=== PATIENT | male | born 1940 | race Caucasian/White ===

== ENCOUNTER 2016-09-17 12:34 | Emergency (ER) | payer MEDICARE ==
[~2016-09-17] VITALS: Ht 180.3 cm; Wt 119.0 kg
[~2016-09-17 12:34] MED LIST: AMLODIPINE5 MG PO; ANTIVERT PO; ASPIRIN EC81 MG PO; BL FLAX SEED1000 MG PO; ENTRESTO 24-261 TAB PO; FISH OIL1000 MG PO; GNP POTASSIUM99 MG PO; K-TAB20 MEQ PO; LASIX 40 MG40 MG/TAB PO; LEVAQUIN750 MG PO; LOSARTAN POTASS50 MG PO; METOLAZONE2.5 MG PO; PROAIR HFA IN; SIMVASTATIN10 MG PO; SPIRONOLACTONE50 MG PO; ZOFRAN ODT4 MG PO
[2016-09-17] MEDS ORDERED: ENTRESTO 49-511 TAB PO (13:00)
[2016-09-17] MEDS ORDERED: ISOSORB MONO30 MG PO (13:01)
[2016-09-17] MEDS ORDERED: VITAMIN B-12500 MCG PO (13:03)
[2016-09-17] MEDS ORDERED: BUMETANIDE1 MG PO (13:04)
[2016-09-17 13:59] LABS: HEMOGLOBIN 14.4 g/dl (14.0-18.0); IMMATURE GRANULOCYTES 0.3 % (0.0-1.0); MEAN CELL VOLUME 95.6 fL CALC (80.0-100.0); MEAN CORPUSCULAR HGB 33.6 pG CALC (26.0-32.0); MEAN CORPUSCULAR HGB CONC 35.1 g/L CALC (32.0-36.0); NEUT# 7.13 thou/uL (1.82-7.42); RED BLOOD COUNT 4.29 mill/uL (4.70-6.10); RED CELL DISTRI WIDTH 12.6 % (11.5-15.5)
[2016-09-17 14:09] LABS: ALBUMIN 4.4 g/dL (3.2-5.0); ALKALINE PHOSPHATASE 93 u/l (38-126); ANION GAP 18 (6-22 (CALC)); BUN 18 mg/dL (8-23); BUN/CREATININE RATIO 16 (12-20 (CALC)); CALCIUM 9.3 mg/dL (8.4-10.2); CARBON DIOXIDE 27 mmol/l (22-30); CHLORIDE 98 mmol/l (95-108); CREATININE 1.1 mg/dL (0.7-1.3); GFR > 60 ML/MIN (>=60 (CALC)); GFR FOR AFR.AMER. > 60 ML/MIN (>=60 (CALC)); GLUCOSE 113 mg/dL (82-115); POTASSIUM 3.8 mmol/l (3.5-5.1); SGOT/AST 19 u/l (19-48); SGPT/ALT 28 u/l (11-66); SODIUM 139 mmol/l (137-146)
[2016-09-17] MEDS ORDERED: INDOCIN25 MG PO (16:07)
[2016-09-17 16:13] VITALS: BP 138/71
== END 2016-09-17 16:23 | disposition home or self-care (01) ==
LOC: ED 12:34
PROVIDERS: Emergency Medicine
DX: M10.072 Idiopathic gout, left ankle and foot (principal); M77.32 Calcaneal spur, left foot; R22.42 Localized swelling, mass and lump, left lower limb; M79.605 Pain in left leg; R50.9 Fever, unspecified

== ENCOUNTER 2017-05-27 18:09 | Emergency (ER) | payer MEDICARE ==
[~2017-05-27] VITALS: Ht 180.3 cm; Wt 117.0 kg
[~2017-05-27 18:09] MED LIST changes: +BUMETANIDE1 MG PO; +ENTRESTO 49-511 TAB PO; +INDOCIN25 MG PO; +ISOSORB MONO30 MG PO; +VITAMIN B-12500 MCG PO
[2017-05-27] MEDS ORDERED: ALLOPURINOL100 MG PO (18:33)
[2017-05-27] MEDS ORDERED: FAMOTIDINE20 M1 PO (18:33)
[2017-05-27] MEDS ORDERED: FLORASTOR250 M1 PO (18:34)
[2017-05-27 19:12] LABS: HEMATOCRIT 41.7 % (39.0-50.0); HEMOGLOBIN 14.1 g/dl (14.0-18.0); IMMATURE GRANULOCYTES 0.3 % (0.0-1.0); MEAN CELL VOLUME 99.3 fL CALC (80.0-100.0); MEAN CORPUSCULAR HGB 33.6 pG CALC (26.0-32.0); MEAN CORPUSCULAR HGB CONC 33.8 g/L CALC (32.0-36.0); NEUT# 5.92 thou/uL (1.82-7.42); RED BLOOD COUNT 4.2 mill/uL (4.70-6.10); RED CELL DISTRI WIDTH 12.8 % (11.5-15.5)
[2017-05-27 19:36] LABS: ALBUMIN 4.7 g/dL (3.2-5.0); BILIRUBIN, TOTAL 0.8 mg/dL (0.0-1.4); CALCIUM 9.8 mg/dL (8.4-10.2); CREATININE 1.5 mg/dL (0.7-1.3); POTASSIUM 4.4 mmol/l (3.5-5.1); TOTAL PROTEIN 7.1 g/dL (6.3-8.2)
[2017-05-27] MEDS ORDERED: PERCOCET 5/325M1 TAB PO (20:47)
[2017-05-27 21:00] VITALS: BP 148/73
== END 2017-05-27 21:20 | disposition home or self-care (01) ==
LOC: ED 18:09
PROVIDERS: Emergency Medicine
DX: M1A.9XX0 Chronic gout, unspecified, without tophus (tophi) (principal); M25.572 Pain in left ankle and joints of left foot

== ENCOUNTER 2017-10-06 21:13 | Emergency (ER) | payer MEDICARE ==
[~2017-10-06] VITALS: Ht 180.3 cm; Wt 111.2 kg
[~2017-10-06 21:13] MED LIST changes: +ALLOPURINOL100 MG PO; +FAMOTIDINE20 M1 PO; +FLORASTOR250 M1 PO; +PERCOCET 5/325M1 TAB PO
[2017-10-06 22:18] LABS: HEMATOCRIT 40.5 % (39.0-50.0); HEMOGLOBIN 13.9 g/dl (14.0-18.0); IMMATURE GRANULOCYTES 0.5 % (0.0-1.0); MEAN CELL VOLUME 98.1 fL CALC (80.0-100.0); MEAN CORPUSCULAR HGB 33.7 pG CALC (26.0-32.0); MEAN CORPUSCULAR HGB CONC 34.3 g/L CALC (32.0-36.0); NEUT# 5.97 thou/uL (1.82-7.42); RED BLOOD COUNT 4.13 mill/uL (4.70-6.10); RED CELL DISTRI WIDTH 13.2 % (11.5-15.5)
[2017-10-06 22:30] LABS: ANION GAP 20 (6-22 (CALC)); BUN 16 mg/dL (8-23); BUN/CREATININE RATIO 13 (12-20 (CALC)); CARBON DIOXIDE 23 mmol/l (22-30); CHLORIDE 102 mmol/l (95-108); CREATININE 1.2 mg/dL (0.7-1.3); GFR 59 ML/MIN (>=60 (CALC)); GFR FOR AFR.AMER. > 60 ML/MIN (>=60 (CALC)); POTASSIUM 4.1 mmol/l (3.5-5.1); SODIUM 141 mmol/l (137-146)
[2017-10-06] MEDS ORDERED: BACTRIM DS1 TAB PO (22:34)
[2017-10-06] MEDS ORDERED: MITIGARE0.6 MG PO (23:25)
[2017-10-06] MEDS ORDERED: PREDNISONE10 MG PO (23:25)
[2017-10-06 23:51] VITALS: BP 120/64
== END 2017-10-07 00:14 | disposition home or self-care (01) ==
LOC: ED 21:13
PROVIDERS: Family Medicine
DX: M10.9 Gout, unspecified (principal); M25.572 Pain in left ankle and joints of left foot; M25.571 Pain in right ankle and joints of right foot; M25.474 Effusion, right foot; R50.9 Fever, unspecified

== ENCOUNTER 2023-12-06 01:00 | Inpatient (IN) | payer MEDICARE ==
[~2023-12-06] VITALS: Ht 180.3 cm; Wt 125.4 kg
[2023-12-06] VITALS (22 sets, daily range): BP systolic 75–114; BP diastolic 41–64
[~2023-12-06 01:00] MED LIST changes: +ASPIRIN325 MG PO; +BACTRIM DS1 TAB PO; +CORDARONE/200 MG/TAB PO; +KENALOG15 GM/TUBE EX; +KLOR-CON M2020 MEQ PO; +LIPITOR80 M1 PO; +MAGNESIUM OXID400 M4 PO; +MELATONIN3 M1 PO; +METOLAZONE5 MG PO; +MITIGARE0.6 MG PO; +MULTI VIT PO; +NITROSTAT0.4 MG SL; +PREDNISONE10 MG PO; +RYBELSUS7 MG PO; +SPIRONOLACTONE25 M1 PO; +VENTOLIN HFA108 MCG IN; +VITAMIN B1100 M1 PO
[2023-12-06] MEDS ORDERED: METOLAZONE 2.5 MG/TAB PO ONE (01:20)
[2023-12-06] MEDS ORDERED: BUMETANIDE 1 MG/4 ML VIAL IV ONE (01:20)
[2023-12-06 01:27] LABS: BASO% 1.2 % (0-3); EOS% 11.9 % (0-8); HEMATOCRIT 32.6 % (39.0-50.0); HEMOGLOBIN 10.4 g/dl (14.0-18.0); IMMATURE GRANULOCYTES 0.8 % (0.0-5.0); LYMPH% 10.6 % (15-41); MEAN CELL VOLUME 103.5 fL CALC (80.0-100.0); MEAN CORPUSCULAR HGB CONC 31.9 g/dL CAL (32.0-36.0); MONO% 18.3 % (2-13); NEUT# 4.21 thou/uL (1.82-7.42); NEUT% 57.2 % (42-76); RED BLOOD COUNT 3.15 mill/uL (4.70-6.10); RED CELL DISTRI WIDTH 15.3 % (11.5-15.5)
[2023-12-06 01:42] LABS: ALBUMIN 3.6 g/dL (3.2-5.0); BILIRUBIN, TOTAL 1.3 mg/dL (0.2-1.3); TOTAL PROTEIN 6.7 g/dL (6.3-8.2)
[2023-12-06 01:53] LABS: CREATININE 3.9 mg/dL (0.7-1.3)
[2023-12-06 01:54] LABS: POTASSIUM 6.5 mmol/l (3.5-5.1)
[2023-12-06] MEDS ORDERED: SODIUM POLYSTYRENE SULFONATE 15 G/BTL POWDER PO ONE (02:05)
[2023-12-06] MEDS ORDERED: CALCIUM GLUCONATE 1 GM in SODIUM CHLORIDE 0.9% 50 ML IV ONE (02:05)
[2023-12-06] MEDS ORDERED: DEXTROSE 10% 500 ML BAG IV ONE (02:05)
[2023-12-06] MEDS ORDERED: INSULIN REGULAR (HUMAN) 100 UNIT/ML INJ IV ONE (02:05)
[2023-12-06 04:59] LABS: URINE BILIRUBIN - DIPSTICK Negative (NEGATIVE); URINE BLOOD DIPSTICK Small (NEGATIVE); URINE COLOR Yellow; URINE GLUCOSE - DIPSTICK Negative (NEGATIVE); URINE KETONE Negative (NEGATIVE); URINE PROTEIN - DIPSTICK 30 mg/dL (NEG-TRACE); URINE SPECIFIC GRAVITY 1.015
[2023-12-06 05:00] LABS: URINE BACTERIA FEW hpf; URINE EPITHELIAL CELLS FEW EPI/hpf (0-FEW); URINE LEUK ESTERASE Small (NEGATIVE); URINE NITRITE - DIPSTICK Negative (Negative)
[2023-12-06] MEDS ORDERED: diazePAM 10 MG/2 ML VIAL IV ONE (05:20)
[2023-12-06] MEDS ORDERED: MIDODRINE5 MG PO (05:56)
[2023-12-06] MEDS ORDERED: BUMETANIDE2 MG PO (05:58)
[2023-12-06] MEDS ORDERED: PROTONIX40 M2 PO (05:58)
[2023-12-06] MEDS ORDERED: ENOXAPARIN SODIUM 40 MG/0.4 ML SYR SC ONE (06:10)
[2023-12-06] MEDS ORDERED: TEMAZEPAM 15 MG/CAP PO PRN (06:10)
[2023-12-06] MEDS ORDERED: FAMOTIDINE 10MG/ML 2ML SDV IV PRN (06:10)
[2023-12-06] MEDS ORDERED: ALUM & MAG HYDROX-SIMETHICONE 30 ML PO PRN (06:10)
[2023-12-06] MEDS ORDERED: ONDANSETRON HCl 4 MG/2 ML SDV IV PRN (06:10)
[2023-12-06] MEDS ORDERED: ACETAMINOPHEN 325 MG/TAB PO PRN ×2 (06:10→09:35)
[2023-12-06] MEDS ORDERED: MAGNESIUM HYDROXIDE 30 ML UDC PO PRN ×2 (06:10→09:35)
[2023-12-06] MEDS ORDERED: ONDANSETRON 4 MG/TAB ODT PO PRN (06:10)
[2023-12-06] MEDS ORDERED: CYCLOBENZAPRINE HCL 5 MG TAB PO PRN (06:15)
[2023-12-06] MEDS ORDERED: CLARIFY DOSE SC PRN (06:45)
[2023-12-06] MEDS ORDERED: CLARIFY DOSE IV PRN (06:45)
[2023-12-06] MEDS ORDERED: SODIUM POLYSTYRENE SULFONATE 15 G/BTL POWDER PO SCH ×2 (08:00→09:00)
[2023-12-06] MEDS ORDERED: METOLAZONE 2.5 MG/TAB PO SCH (09:00)
[2023-12-06] MEDS ORDERED: CALCIUM GLUCONATE 1 GM in SODIUM CHLORIDE 0.9% 50 ML IV SCH (09:00)
[2023-12-06] MEDS ORDERED: MIDODRINE HCL 5 MG TAB PO SCH (10:00)
[2023-12-06] MEDS ORDERED: traMADol HCL 50 MG/TAB PO PRN (10:30)
[2023-12-06] MEDS ORDERED: SODIUM POLYSTYRENE SULF PO SCH (12:00)
[2023-12-06] MEDS ORDERED: BUMETANIDE 1 MG/4 ML VIAL IV SCH (14:00)
[2023-12-06] MEDS ORDERED: Heparin SODIUM (Porcine) 5,000 UNITS/ML SDV SC SCH (14:00)
[2023-12-06] MEDS ORDERED: GABAPENTIN 100 MG/CAP PO SCH (21:00)
[2023-12-06] MEDS ORDERED: ENOXAPARIN SODIUM 30 MG/0.3 ML INJ SC SCH (21:00)
[2023-12-07 04:08] VITALS: BP 108/57
[2023-12-07 05:37] LABS: ALBUMIN 3.1 g/dL (3.2-5.0); CREATININE 3.6 mg/dL (0.7-1.3)
[2023-12-07 05:38] LABS: POTASSIUM 3.6 mmol/l (3.5-5.1)
[2023-12-07 05:40] LABS: BASO% 1.4 % (0-3); EOS% 14.4 % (0-8); HEMATOCRIT 31.2 % (39.0-50.0); HEMOGLOBIN 10.2 g/dl (14.0-18.0); IMMATURE GRANULOCYTES 0.5 % (0.0-5.0); LYMPH% 10.7 % (15-41); MEAN CELL VOLUME 103.3 fL CALC (80.0-100.0); MEAN CORPUSCULAR HGB 33.8 pG CALC (26.0-32.0); MEAN CORPUSCULAR HGB CONC 32.7 g/dL CAL (32.0-36.0); MONO% 14.4 % (2-13); NEUT# 3.85 thou/uL (1.82-7.42); NEUT% 58.6 % (42-76); RED BLOOD COUNT 3.02 mill/uL (4.70-6.10); RED CELL DISTRI WIDTH 15.4 % (11.5-15.5)
[2023-12-07 05:42] LABS: ALBUMIN 3.1 g/dL (3.2-5.0); BILIRUBIN, TOTAL 1.2 mg/dL (0.2-1.3); CREATININE 3.7 mg/dL (0.7-1.3); MAGNESIUM 1.9 mg/dL (1.6-2.3); TOTAL PROTEIN 5.9 g/dL (6.3-8.2)
[2023-12-07 05:43] LABS: POTASSIUM 3.7 mmol/l (3.5-5.1)
[2023-12-07] MEDS ORDERED: BUMETANIDE 1 MG/4 ML VIAL IV SCH (06:00)
[2023-12-07] MEDS ORDERED: BUMETANIDE2 MG PO (06:05)
[2023-12-07 07:06] VITALS: BP 102/57
== END 2023-12-07 16:13 | disposition hospice, home (50) | DRG 291 ==
LOC: ED 01:00 → ED-I 05:05 → ED 06:12 → MS2 06:13
PROVIDERS: Family Medicine; Internal Medicine Nephrology; Student in an Organized Health Care Education/Training Program; ADMIT Internal Medicine; ATTEND Internal Medicine
DX: I13.0 Hypertensive heart and chronic kidney disease with heart failure and stage 1 through stage 4 chronic kidney disease, or unspecified chronic kidney disease (principal); I50.43 Acute on chronic combined systolic (congestive) and diastolic (congestive) heart failure; N17.9 Acute kidney failure, unspecified; E87.1 Hypo-osmolality and hyponatremia; I50.84 End stage heart failure; N18.32 Chronic kidney disease, stage 3b; E87.5 Hyperkalemia; I95.9 Hypotension, unspecified; D63.1 Anemia in chronic kidney disease; I25.10 Atherosclerotic heart disease of native coronary artery without angina pectoris; M10.9 Gout, unspecified; I73.9 Peripheral vascular disease, unspecified; E78.5 Hyperlipidemia, unspecified; G47.33 Obstructive sleep apnea (adult) (pediatric); E66.9 Obesity, unspecified; Z68.38 Body mass index [BMI] 38.0-38.9, adult; Z51.5 Encounter for palliative care; Z66 Do not resuscitate; Z95.0 Presence of cardiac pacemaker; Z87.442 Personal history of urinary calculi; Z95.820 Peripheral vascular angioplasty status with implants and grafts; Z95.2 Presence of prosthetic heart valve; Z87.891 Personal history of nicotine dependence; Z96.0 Presence of urogenital implants